=== PATIENT | male | born 1975 | race Caucasian/White ===

== ENCOUNTER → 2024-10-03 07:26 | Outpatient (REF) | payer OTHER, SELFPAY | LOC: HWRAD 07:26 | PROVIDERS: ATTENDING PHYSICIAN Internal Medicine Hematology & Oncology; FAMILY PHYSICIAN Family Medicine | DX: E83.19 Other disorders of iron metabolism (principal) | CPT/HCPCS: 76700 ==

== ENCOUNTER → 2025-09-21 13:27 | Outpatient (REF) | payer OTHER, SELFPAY | LOC: RAD 13:27 | PROVIDERS: ATTENDING PHYSICIAN Family Medicine | DX: G89.29 Other chronic pain (principal); M54.41 Lumbago with sciatica, right side; M54.42 Lumbago with sciatica, left side | CPT/HCPCS: 72110 ==

== ENCOUNTER → 2025-10-05 06:57 | Outpatient (REF) | payer OTHER, SELFPAY | LOC: RAD 06:57 | PROVIDERS: ATTENDING PHYSICIAN Family Medicine | DX: N39.43 Post-void dribbling (principal) | CPT/HCPCS: 76872 ==